=== PATIENT | male | born 1970 ===

== ENCOUNTER → 2017-11-27 | Outpatient (CLI) | payer OTHER ==
[~2017-11-27] MED LIST: ADVAIR 100-501 EACH IH; ASPIR 8181 MG PO; GILTUSS TR TAB1 EACH; LEVAQUIN500 MG PO; LEVAQUIN750 MG PO; OSEL75CA PO; PANADOL MAXIMU500 MG PO; SINGULAIR10 MG PO; Tussi-Organidin Dm-S PO; ZYRTEC10 MG PO
== END | disposition home or self-care (01) ==
LOC: PPHC 17:59
DX: M79.89 Other specified soft tissue disorders (principal)

== ENCOUNTER → 2017-11-28 16:49 | Outpatient (CLI) | payer OTHER ==
[~2017-11-28 16:49] MED LIST changes: +DICLOFENAC POTA50 MG PO; +NORFLEX100MG PO
== END | disposition home or self-care (01) ==
LOC: RAD 16:49
DX: M79.89 Other specified soft tissue disorders (principal)